=== PATIENT | male | born 1965 ===

== ENCOUNTER 2024-03-22 15:00 | Emergency (ER) | payer OTHER ==
[2024-03-22] MEDS ORDERED: KETOROLAC 15 MG/ML 1 ML VIAL ONE (16:00)
[2024-03-22] MEDS ORDERED: DEXAMETHASONE SOD PHOSPHATE 10 MG/ML 1 ML VIAL ONE (17:45)
--- NOTE | 2024-04-28 10:15 | XR ---
Site ID synapse default Patient Melvin Anderson ID [id number] EXAMINATION TYPE: XR Hip Bilateral and AP pelvis DATE OF EXAM: 03/22/2024 5:10 PM CLINICAL INDICATION: Pain - no injury COMPARISON: THIS EXAM WAS READ DURING PACS DOWNTIME, NO PRIORS AVAILABLE. TECHNIQUE: XR Hip Bilateral and AP pelvis; hip was examined in the frontal and lateral projections an d a AP pelvis. FINDINGS: No evidence for acute process, joint dislocation or significant soft tissue swelling. Osteo phyte formation of the superior acetabulum of the hip. There is moderate to severe right and mild-to- moderate left joint space narrowing. IMPRESSION: 1. No evidence for acute process. 2. Moderate to severe right and moderate left hip osteoarthrosis.
== END 2024-03-22 18:25 | disposition home or self-care (01) ==
LOC: EC 15:00
DX: M16.0 Bilateral primary osteoarthritis of hip (principal)
CPT/HCPCS: 73521; 99283; 96372 ×2; J1100; J1885